=== PATIENT | male | born 1950 | race Caucasian/White ===

== ENCOUNTER 2022-05-24 06:50 | Day surgery (SDC) | payer MEDICARE, OTHER ==
[~2022-05-24] VITALS: Ht 172.7 cm; Wt 96.4 kg
[~2022-05-24 06:50] MED LIST: DAILY VALUE1 EACH PO; FLOMAX0.4 MG PO; FLUOCINONIDE15 GM TOP; K2 PLUS D3 TAB1 EACH PO; LIPITOR20 MG PO; OMEPRAZOLE20 MG PO; PEPCID40 MG PO; PROSCAR5 MG PO
--- NOTE | 2022-05-24 11:09 | NUR ---
05/24/22 1109 Kimber Mendes 1013 PT ARRIVED IN PACU NON RESPONSIVE TO NOXIOUS STIMULI WITH OPA IN PLACE. 1024 PT REACTIVE. OPA REMOVED. 1025 PT TRYING TO CRAWL OUT OF BED AND C/O URGE TO VOID. 1030 URINAL PLACED IN SEMI CASTANO POSITION WITH NO SUCCESS. 1045 SAT AT SIDE OF BED AND TRIED TO VOID. 1050 STOOD AT SIDE OF BED WITH 2 PERSON ASSIST. UNABLE TO VOID. BACK IN BED. 1055 BLADDER SCANNED PT TO SHOW 394ML. 1100 TO DS UNTIL ABLE TO VOID. REPORT GIVEN TO RN.
--- NOTE | 2022-05-24 16:13 | NUR ---
1100 PT RETURNS TO DS ROOM, REPORTS FEELING PAINFUL PRESSURE IN BLADDER, WANTING TO VOID. SHE WANTS TO STAND TO ATEMPT TO VOID. HE REPORTS PAIN IS 10/10 WITH LOTS OF PRESSURE.
--- NOTE | 2022-05-24 16:24 | NUR ---
1110 PT CONTINUES TO COMPLAIN OF PAIN AND PRESSURE TO BLADDER. WALKED HIM TO THE BATHROOM AT HIS INSISTANCE TO DANCE INSTRUCTOR FRONT OF THE TOILET TO VOID. HE IS NOT ABLE TO VOID. TALKED HIM INTO GETTING BACK INTO BED SO I CAN GIVE HIM A PAIN PILL. PERCOCET GIVEN.
--- NOTE | 2022-05-24 16:28 | NUR ---
1145 PT VERY ANXIOUS, GRIMMISING, AND WRITHING IN BED. REPORTS PAIN PILL IS NOT WORKING. TALKED TO DR GONZALEZ SHE ORDERED VERSED 2MG. PT NOT WRITHING MUCH AFTER VERSED.
--- NOTE | 2022-05-24 16:32 | NUR ---
1217 DR GONZALEZ ORDED 20FR ADAMS CATH TO BE PLACED AND SENT HOME WITH IT IN PLACE.
--- NOTE | 2022-05-24 16:35 | NUR ---
1230 20FR 30CC ADAMS CATH PLACED 450ML OF DARK RED URINE EMPTIED FROM BLADDER INTO ADAMS BAG. IRRIGATED BLADDER WITH 200ML OF NS. URINE WAS MINE WEDGE SAWYER RED AFTER IRRIGATION.
--- NOTE | 2022-05-24 16:41 | NUR ---
1155 DILAUDID GIVEN BEFOR ADAMS WAS PLACED.
--- NOTE | 2022-05-24 16:44 | NUR ---
1400 PT CONTINUES TO COMPLAIN OF PAIN 7/10 TO THE TIP OF HIS PENIS. ULTRAM GIVEN.
--- NOTE | 2022-05-24 16:47 | NUR ---
1410 DR GONZALEZ ORDERED TXA TO BE GIVEN TO HELP WITH BLEEDING.
--- NOTE | 2022-05-24 16:48 | NUR ---
1500 DISCHARGE INSTRUCTIONS GIVEN TO PT AND , BOTH VOICED UNDERSTANDING. WARM BLANKETS AND MELVIN HUGGER GIVEN TO PT. HE IS RESTING MORE COMFORTABLEY
--- NOTE | 2022-05-24 16:49 | NUR ---
1500 200ML OF RED URINE EMPTIED FROM ADAMS BAG.
--- NOTE | 2022-05-26 14:04 | OR ---
[facility] [address], [place] [address] Signed DATE OF OPERATION: 05/24/2022 SURGEON: Atul Gonzalez MD PREOPERATIVE DIAGNOSIS: Bilobar benign prostatic hyperplasia with lower urinary tract symptoms. POSTOPERATIVE DIAGNOSIS: Bilobar benign prostatic hyperplasia with lower urinary tract symptoms. NAMES OF PROCEDURES: UroLift prostatic urethral lift. ANESTHESIA: Monitored anesthesia care. ESTIMATED BLOOD LOSS: 10 mL. COMPLICATIONS: None. SPECIMENS: None. INDICATIONS: Mr. Fonseca is a very pleasant 72-year-old gentleman, who presented to me earlier this year with classic prostate obstructive symptoms, i.e., weak force of stream, urinary hesitancy, along with a stuttering stream. He has since tried and failed Flomax therapy and he is not interested in starting any alpha-chriss therapy because he was still sexually active. He subsequently underwent diagnostic cystoscopy, which revealed [id number] lateral lobe hypertrophy with a very small median bar. After a discussion of his treatment options, he elected to undergo the UroLift procedure. He presents today to undergo definitive management of his BPH with lower urinary tract symptoms. OPERATIVE FINDINGS: 1. On cystoscopy, there was no evidence of any suspicious masses, lesions, or stones. Bilateral ureteral orifices are in their normal anatomic location. 2. A total of 6 UroLift implants were placed with three on the right and three on the Electronically Signed By: ATUL GONZALEZ MD 05/26/22 1404 PATIENT NAME: SHERRY FONSECA OPERATIVE REPORT DATE OF : 52 REPORT #: [id number] PHYSICIAN: ATUL GONZALEZ MD PCP: NIRU FRANKS MD REPORT IS CONFIDENTIAL AND NOT TO BE RELEASED WITHOUT AUTHORIZATION [facility] [address], [place] [address] Signed left. Placement of the implants was performed without difficulty. 3. At the end of the procedure, a small amount of fluid was left in the patient's bladder to allow for an adequate voiding trial postoperatively. DESCRIPTION OF PROCEDURE: The patient was brought to the operating room and was identified with a surgical pause. He was transferred from the [facility] to the operating room table, where MAC anesthesia was induced. He was then placed in the dorsal lithotomy position and his genitalia prepped and draped in a standard sterile fashion. A 20-Lao cystoscope was inserted into the urethral meatus guided by a visual obturator. Inspection of the prostatic urethra was notable for obstruction present as a result of the enlarged lateral lobes of the prostate. The visual obturator was replaced with a UroLift 2 System delivery device. The first treatment site was the patient's left side approximately 1.5 cm distal to the bladder neck. UroLift System implantation status for completed as indicated in the product documentation. The capsular tab was successfully deployed. Urethral end-piece was successfully affixed to the suture and the suture was cut. The delivery device was then readvanced into the bladder and then removed from the sheath and the patient. The implant cartridge was removed and the delivery device replaced with the scope seal and the assembled device was reinserted. The implant location opening effect was confirmed cystoscopically. The same steps of the procedure were then performed on the right side and approximately 1.5 cm from the bladder neck followed by two additional implants just proximal to the verumontanum, two on the left and two on the right side of the prostate-following the indicated implantation technique. At the end the procedure, a final cystoscopy was conducted, first to inspect the location state of each implant and second to confirm the presence of a continuous anterior channel from the verumontanum to bladder neck. This channel was present through the prostatic urethra with the irrigation flow turned off. At the end of the procedure, the cystoscope was removed after leaving a small amount of fluid in the bladder to allow for a voiding trial postoperatively. The patient tolerated the procedure well without any complication. He will now be transferred to the postanesthesia care unit in stable condition. DISPOSITION: I discussed the details of today's procedure with the patient's and answered all of her questions. The patient will be sent home today with five days worth of Cipro for antibiotic prophylaxis along with Pyridium 200 mg p.o. up to t.i.d. p.r.n. dysuria as well as oxybutynin IR 5 mg b.i.d. p.r.n. frequency. He has been scheduled to return to clinic to see me in early June 2022 with a postvoid residual for his first postoperative visit. Electronically Signed By: ATUL GONZALEZ MD 05/26/22 1404 PATIENT NAME: SHERRY FONSECA OPERATIVE REPORT DATE OF : 52 REPORT #: [id number] PHYSICIAN: ATUL GONZALEZ MD PCP: NIRU FRANKS MD REPORT IS CONFIDENTIAL AND NOT TO BE RELEASED WITHOUT AUTHORIZATION [address] [address] Signed Atul Gonzalez MD AR/MODL /[id number] Copies: ~ Electronically Signed By: ATUL GONZALEZ MD 05/26/22 1404 PATIENT NAME: SHERRY FONSECA BRETT OPERATIVE REPORT DATE OF : 52 REPORT #: [id number] PHYSICIAN: ATUL GONZALEZ MD PCP: NIRU FRANKS MD REPORT IS CONFIDENTIAL AND NOT TO BE RELEASED WITHOUT AUTHORIZATION
== END 2022-05-24 15:30 | disposition home or self-care (01) ==
LOC: DS 06:50
PROVIDERS: ATTEND Urology
PROC: 0T7D8DZ Dilation of Urethra with Intraluminal Device, Via Natural or Artificial Opening Endoscopic (ICD-10-PCS; principal; 2022-05-24 07:45)
DX: N40.1 Benign prostatic hyperplasia with lower urinary tract symptoms (principal); N13.8 Other obstructive and reflux uropathy; R33.9 Retention of urine, unspecified
CPT/HCPCS: J0690; J1170; J2001; J2250; J2704; J3010; J7121